=== PATIENT | male | born 1935 | race Caucasian/White ===

== ENCOUNTER 2020-06-22 23:01 | Emergency (ER) | payer OTHER, BC ==
[~2020-06-22] VITALS: Ht 188 cm; Wt 106.6 kg
[2020-06-22 23:16] VITALS: BP 110/60
--- NOTE | 2020-06-22 23:16 | NUR ---
PT BIBA TAKEN TO TENT. VSS. NO ACUTE DISTRESS. PT PROVIDED W/ 2 BLANKETS. ERMD MADE AWARE OF PT STATUS.
--- NOTE | 2020-06-22 23:50 | NUR ---
PER PHILIP, PERSONAL FITNESS MANAGER PT STATES HE IS FEELING LIGHTHEADED. PT ASSESSED. PT A/O X 4 , ABLE TO FOLLOW COMMANDS. PT STATES HE WAS FEELING LIGHTHEADED BUT FEELS OKAY AT THIS TIME. NO ACUTE DISTRESS NOTED.
--- NOTE | 2020-06-23 00:46 | NUR ---
SPOKE W/ ROLANDO, PT DAUGHTER. SHE WILL COME SENIOR DATABASE PROGRAMMER PT WHEN HE IS READY FOR DISCHARGE. CALL WHEN HE IS READY FOR SENIOR DATABASE PROGRAMMER. ROLANDO CELL [phone]
--- NOTE | 2020-06-23 01:15 | NUR ---
RESULT BACK AND NOTED BY ERMD AND FOR D/C
[2020-06-23 01:35] VITALS: BP 112/78
--- NOTE | 2020-06-23 01:35 | NUR ---
Patient discharged with v/s stable. Written and verbal after care instructions given and explained. Patient alert, oriented and verbalized understanding of instructions. Ambulatory with steady gait. All questions addressed prior to discharge. ID band removed. Patient advised to follow up with PMD. Rx of PREDNISONE, DOXYCYCLINE given. Patient educated on indication of medication including possible reaction and side effects. Opportunity to ask questions provided and answered.
== END 2020-06-23 01:35 | disposition home or self-care (01) ==
LOC: MED 23:01
DX: U07.1 COVID-19 (principal); J44.9 Chronic obstructive pulmonary disease, unspecified; I10 Essential (primary) hypertension; Z98.890 Other specified postprocedural states; Z88.1 Allergy status to other antibiotic agents; Z88.5 Allergy status to narcotic agent; Z88.8 Allergy status to other drugs, medicaments and biological substances; Z95.1 Presence of aortocoronary bypass graft
CPT/HCPCS: 71045; 99283